=== PATIENT | male | born 1960 | race Caucasian/White ===

== ENCOUNTER 2025-05-13 20:56 | Inpatient (IN) | payer MEDICAID ==
[~2025-05-13] VITALS: Ht 160 cm; Wt 56.8 kg
[2025-05-13 21:00] VITALS: O2SAT 97
[2025-05-14 03:44] LABS: BASOPHILS % 0.5 % (0.0-2.0); EOSINOPHILS % 2.2 % (0.0-5.0); HEMATOCRIT. 46.3 % (42.0-52.0); HEMOGLOBIN. 15.3 g/dL (14.0-18.0); LYMPHOCYTES % 18.5 % (20.0-50.0); MEAN PLATELET VOLUME 6.9 fl (7.4-10.4); MONOCYTES % 10.5 % (2.0-8.0); NEUTROPHILS % 68.3 % (40.0-76.0); PLATELET 254 x1000/uL (130-400); RED BLOOD CELL COUNT 4.91 mill/uL (4.7-6.1); RED CELL DISTRIBUTION WIDTH 13.8 % (11.6-14.6)
[2025-05-14 03:57] LABS: CREATININE 1.0 mg/dL (0.6-1.3); ETHANOL BLOOD < 10 mg/dL (<10); UREA NITROGEN BLOOD 27 mg/dL (9-23)
[2025-05-14 05:15] VITALS: BP 105/66; PULSE 60; RESP 16; TEMP 36.5292
[2025-05-14 08:00] VITALS: BP 105/76; PULSE 64; RESP 16; TEMP 36.2; O2SAT 99
[2025-05-14] MEDS ORDERED: DOCUSATE SODIUM 100MG CAPSULE PO PRN (09:15)
[2025-05-14] MEDS ORDERED: IPRATROPIUM/ALBUTEROL 0.5-3(2.5)MG/3ML NEB HHN PRN (09:15)
[2025-05-14] MEDS ORDERED: ONDANSETRON HCL 4MG/2ML INJ IV PRN (09:15)
[2025-05-14] MEDS ORDERED: ACETAMINOPHEN 325MG TABLET PO PRN (09:15)
[2025-05-14] MEDS ORDERED: CLONIDINE 0.1MG TABLET PO PRN (09:15)
[2025-05-14 10:41] LABS: ASPARTATE AMINOTRANSFERASE 86 IU/L (<34); BILIRUBIN DIRECT 0.2 mg/dL (<=3.0); BILIRUBIN TOTAL 1.0 mg/dL (0.1-1.0); PROTEIN TOTAL 6.6 g/dL (6.0-8.3)
[2025-05-14] MEDS: PANTOPRAZOLE SODIUM 40 MG/VIAL IV SCH (11:24)
[2025-05-14] MEDS: MULTIVITAMINS,THER W-MINERALS TABLET PO SCH (11:24)
[2025-05-14] MEDS: THIAMINE HCL 100MG TABLET PO SCH (11:25)
[2025-05-14] MEDS: FOLIC ACID 1MG TABLET PO SCH (11:25)
[2025-05-14] MEDS: DEXT 5%/0.45% NACL 1000ML 1,000 ML IV SCH (11:28)
[2025-05-14 11:41] LABS: INR 1.0
[2025-05-14 12:00] VITALS: TEMP 36.3; O2SAT 98
[2025-05-14] MEDS: CHLORDIAZEPOXIDE 25MG CAPSULE PO SCH (13:38)
[2025-05-14] MEDS: LORAZEPAM 1MG TABLET PO SCH (16:08)
[2025-05-14 16:49] LABS: CLARITY URINE CLEAR (CLEAR); COLOR URINE YELLOW (YELLOW); GLUCOSE URINE 2+ (NEGATIVE); KETONES URINE TRACE (NEGATIVE); LEUKOCYTE ESTERASE URINE NEGATIVE (NEGATIVE); NITRITE URINE NEGATIVE (NEGATIVE); OCCULT BLOOD URINE NEGATIVE (NEGATIVE); PH URINE 5.5 (4.5-8.0); PROTEIN URINE NEGATIVE (NEGATIVE); SPECIFIC GRAVITY URINE 1.029 (1.005-1.030); UROBILINOGEN URINE 1.0 E.U./dL (0.2-1.0)
[2025-05-14 17:27] LABS: *AMPHETAMINES SCREEN URINE NEGATIVE (NEGATIVE); *BARBITURATES SCREEN URINE NEGATIVE (NEGATIVE); *BENZODIAZEPINES SCREEN URINE NEGATIVE (NEGATIVE); *COCAINE SCREEN URINE NEGATIVE (NEGATIVE); CANNABINOID URINE SCREEN NEGATIVE (NEGATIVE); ECSTASY MDMA SCREEN URINE NEGATIVE (NEGATIVE); METHADONE URINE SCREEN NEGATIVE (NEGATIVE); OPIATES URINE SCREEN NEGATIVE (NEGATIVE); PHENCYCLIDINE URINE SCREEN NEGATIVE (NEGATIVE)
[2025-05-14 18:15] LABS: BACTERIA URINE NONE SEEN; RBC URINE NONE SEEN /hpf (0-2); SQUAMOUS EPITHELIAL CELL URINE RARE /lpf (RARE/1+); WBC URINE NONE SEEN /hpf (0-2)
[2025-05-14 20:00] VITALS: BP 110/74; PULSE 75; RESP 21; TEMP 36.8; O2SAT 100
[2025-05-14] MEDS: LORAZEPAM 1MG TABLET PO PRN (22:07)
[2025-05-15] VITALS: BP 103/71; PULSE 66; RESP 18; TEMP 36.1; O2SAT 100
[2025-05-15 04:00] VITALS: BP 108/75; PULSE 52; RESP 18; TEMP 36.2; O2SAT 99
[2025-05-15 08:00] VITALS: BP 109/69; PULSE 52; RESP 18; TEMP 36.5; O2SAT 96
[2025-05-15] MEDS: ACETAMINOPHEN 325MG TABLET PO PRN (09:42)
[2025-05-15 13:21] LABS: BASOPHILS % 0.4 % (0.0-2.0); EOSINOPHILS % 2.2 % (0.0-5.0); HEMATOCRIT. 44.7 % (42.0-52.0); HEMOGLOBIN. 14.9 g/dL (14.0-18.0); LYMPHOCYTES % 26.1 % (20.0-50.0); MEAN PLATELET VOLUME 7.2 fl (7.4-10.4); MONOCYTES % 7.5 % (2.0-8.0); NEUTROPHILS % 63.8 % (40.0-76.0); PLATELET 277 x1000/uL (130-400); RED BLOOD CELL COUNT 4.69 mill/uL (4.7-6.1); RED CELL DISTRIBUTION WIDTH 13.5 % (11.6-14.6)
[2025-05-15 13:28] LABS: INR 1.0
[2025-05-15 13:44] LABS: UREA NITROGEN BLOOD 9 mg/dL (9-23)
[2025-05-15 13:45] LABS: CREATININE 0.7 mg/dL (0.6-1.3)
[2025-05-15 13:46] LABS: ASPARTATE AMINOTRANSFERASE 69 IU/L (<34); BILIRUBIN DIRECT 0.2 mg/dL (<=3.0); PHOSPHORUS 2.7 mg/dL (2.5-4.9)
[2025-05-15 13:47] LABS: BILIRUBIN TOTAL 0.9 mg/dL (0.1-1.0); PROTEIN TOTAL 6.4 g/dL (6.0-8.3)
[2025-05-15 16:00] VITALS: BP 111/90; PULSE 83; RESP 17; TEMP 36.4; O2SAT 97
[2025-05-15 20:00] VITALS: BP 132/74; PULSE 82; RESP 19; TEMP 36.6; O2SAT 99
[2025-05-16] VITALS: BP 122/91; PULSE 90; RESP 19; TEMP 36.7; O2SAT 99
[2025-05-16] MEDS: HALOPERIDOL LACTATE 5MG/ML VIAL IM PRN (00:46)
[2025-05-16 04:00] VITALS: BP 160/89; PULSE 82; RESP 18; TEMP 36.3; O2SAT 98
[2025-05-16 09:16] VITALS: BP 124/67; PULSE 60; RESP 16; TEMP 36.3; O2SAT 97
[2025-05-16 12:00] VITALS: BP 137/78; PULSE 70; RESP 16; RESP 18; TEMP 36.6; O2SAT 96
[2025-05-16] MEDS: THIAMINE HCL 100 MG in SODIUM CHLORIDE 0.9% 49 ML IV SCH (13:55)
[2025-05-16 16:13] VITALS: BP 127/65; PULSE 66; RESP 17; TEMP 36.4; O2SAT 96
[2025-05-16 20:00] VITALS: BP 130/88; PULSE 92; RESP 18; TEMP 36.3; O2SAT 98
[2025-05-16 21:56] LABS: TRIGLYCERIDE 197.0 mg/dL (0-150)
[2025-05-16 21:57] LABS: LDL CHOLESTEROL 109.0 mg/dL (5-100)
[2025-05-16 22:02] LABS: FOLIC ACID (FOLATE) SERUM > 20.00 ng/mL (>5.38)
[2025-05-16 22:12] LABS: VITAMIN B12 SERUM > 2000 pg/mL (211-911)
[2025-05-17] VITALS (7 sets, daily range): BP systolic 112–134; BP diastolic 70–106; PULSE 59–97; RESP 16–18; TEMP 36.1–36.7; O2SAT 96–99
[2025-05-17 09:07] LABS: BASOPHILS % 0.5 % (0.0-2.0); EOSINOPHILS % 3.6 % (0.0-5.0); HEMATOCRIT. 45.0 % (42.0-52.0); HEMOGLOBIN. 15.2 g/dL (14.0-18.0); LYMPHOCYTES % 21.0 % (20.0-50.0); MEAN PLATELET VOLUME 7.2 fl (7.4-10.4); MONOCYTES % 5.5 % (2.0-8.0); NEUTROPHILS % 69.4 % (40.0-76.0); PLATELET 292 x1000/uL (130-400); RED BLOOD CELL COUNT 4.80 mill/uL (4.7-6.1); RED CELL DISTRIBUTION WIDTH 13.3 % (11.6-14.6)
[2025-05-17 09:24] LABS: CREATININE 0.8 mg/dL (0.6-1.3); UREA NITROGEN BLOOD 7 mg/dL (9-23)
[2025-05-17] MEDS: HALOPERIDOL LACTATE 5MG/ML VIAL IM PRN (13:17)
[2025-05-17] MEDS: LORAZEPAM 1MG TABLET PO PRN (22:32)
[2025-05-18 07:30] LABS: CREATININE 0.8 mg/dL (0.6-1.3); UREA NITROGEN BLOOD 7 mg/dL (9-23)
[2025-05-18 07:33] LABS: PHOSPHORUS 2.6 mg/dL (2.5-4.9)
[2025-05-18 08:00] VITALS: BP 115/73; PULSE 72; RESP 17; TEMP 36.3; O2SAT 98
[2025-05-18] MEDS: RISPERIDONE 0.5MG TABLET PO SCH (08:58)
[2025-05-18 12:00] VITALS: BP 131/80; PULSE 74; RESP 17; TEMP 36.2; O2SAT 98
[2025-05-18] MEDS ORDERED: MEMA10TA20 MT (14:49)
[2025-05-18] MEDS ORDERED: THIA50TA13 (14:56)
[2025-05-18] MEDS ORDERED: CYAN-33 MT (14:59)
[2025-05-18] MEDS ORDERED: MAGN400C MT (15:01)
[2025-05-18] MEDS ORDERED: CALC-989 MT (15:05)
[2025-05-18] MEDS ORDERED: CHOL500051 (15:08)
[2025-05-18 16:00] VITALS: BP 129/79; PULSE 87; RESP 18; TEMP 36.3; O2SAT 98
[2025-05-18] MEDS: CHOLECALCIFEROL (D3) 1000 UNIT TABLET PO SCH (16:11)
[2025-05-18] MEDS: MEMANTINE HCL 10MG TABLET PO SCH (16:11)
[2025-05-18 20:00] VITALS: BP 150/73; PULSE 94; RESP 19; TEMP 36.6; O2SAT 98
[2025-05-18] MEDS: DIPHENHYDRAMINE 50MG/ML VIAL IV PRN (22:10)
[2025-05-19] VITALS: BP 125/81; PULSE 91; RESP 17; TEMP 36.6; O2SAT 100
[2025-05-19 04:00] VITALS: BP 126/85; PULSE 79; RESP 18; TEMP 36.4; O2SAT 100
[2025-05-19 07:36] LABS: BASOPHILS % 0.4 % (0.0-2.0); EOSINOPHILS % 3.5 % (0.0-5.0); HEMATOCRIT. 44.4 % (42.0-52.0); HEMOGLOBIN. 15.1 g/dL (14.0-18.0); LYMPHOCYTES % 20.5 % (20.0-50.0); MEAN PLATELET VOLUME 6.8 fl (7.4-10.4); MONOCYTES % 7.6 % (2.0-8.0); NEUTROPHILS % 68.0 % (40.0-76.0); PLATELET 303 x1000/uL (130-400); RED BLOOD CELL COUNT 4.77 mill/uL (4.7-6.1); RED CELL DISTRIBUTION WIDTH 13.4 % (11.6-14.6)
[2025-05-19 07:50] LABS: CREATININE 0.8 mg/dL (0.6-1.3); UREA NITROGEN BLOOD 6 mg/dL (9-23)
[2025-05-19 08:00] VITALS: BP 123/89; PULSE 78; RESP 17; TEMP 36.2; O2SAT 100
[2025-05-19] MEDS: RISPERIDONE 0.5MG TABLET PO SCH (09:52)
[2025-05-19 12:00] VITALS: BP 127/82; PULSE 75; RESP 17; TEMP 36.3; O2SAT 98
[2025-05-19 16:00] VITALS: BP 150/85; PULSE 102; RESP 20; TEMP 36.3; O2SAT 99
[2025-05-19 20:00] VITALS: BP 128/87; PULSE 105; RESP 18; TEMP 36.7; O2SAT 98
[2025-05-20] VITALS: BP 126/82; PULSE 94; RESP 18; TEMP 36.7; O2SAT 100
[2025-05-20 04:00] VITALS: BP 147/111; PULSE 109; RESP 18; TEMP 36.6; O2SAT 100
[2025-05-20 08:00] VITALS: BP 156/102; PULSE 98; RESP 19; TEMP 37.1; O2SAT 96
[2025-05-20 12:00] VITALS: BP 126/93; PULSE 104; RESP 15; TEMP 37.2; O2SAT 96
[2025-05-20 16:00] VITALS: BP 136/98; PULSE 111; RESP 17; TEMP 36.9; O2SAT 95
[2025-05-20 20:00] VITALS: BP 107/79; PULSE 95; RESP 19; TEMP 36.7; O2SAT 100
[2025-05-21] VITALS (7 sets, daily range): BP systolic 108–128; BP diastolic 70–89; PULSE 69–93; RESP 14–19; TEMP 36.1–37.1; O2SAT 95–100
[2025-05-22] VITALS: BP 109/79; PULSE 86; RESP 18; TEMP 37; O2SAT 100
[2025-05-22 04:00] VITALS: BP 119/81; PULSE 70; RESP 18; TEMP 36.6; O2SAT 99
[2025-05-22 08:00] VITALS: BP 115/77; PULSE 69; RESP 16; TEMP 37.1; O2SAT 96
[2025-05-22 12:00] VITALS: BP 135/75; PULSE 73; RESP 17; TEMP 36.7; O2SAT 97
[2025-05-22] MEDS ORDERED: RISP05 PO (15:39)
[2025-05-22 16:00] VITALS: BP 115/75; PULSE 77; RESP 16; TEMP 36.4; O2SAT 96
[2025-05-22 17:49] VITALS: BP 122/82; PULSE 75; RESP 17; TEMP 97.1
== END 2025-05-22 18:20 | disposition home or self-care (01) | DRG 52 ==
LOC: ER 20:56 → EDBEDREQ 05-14 03:46 → EDBEDREQTM 05-14 03:46 → 6WST 05-14 03:56 → EDBD 05-14 03:56 → EDBEDREQ 05-14 04:02 → EDBEDREQTM 05-14 04:02 → ENRESERV 05-14 04:27
PROVIDERS: ADMIT Internal Medicine; ATTEND Internal Medicine
PROC: GZ56ZZZ Individual Psychotherapy, Supportive (ICD-10-PCS; principal; 2025-05-17)
DX: G92.9 Unspecified toxic encephalopathy (principal); E87.0 Hyperosmolality and hypernatremia; M62.82 Rhabdomyolysis; F10.129 Alcohol abuse with intoxication, unspecified; F10.139 Alcohol abuse with withdrawal, unspecified; Y90.1 Blood alcohol level of 20-39 mg/100 ml; Z79.899 Other long term (current) drug therapy; Z90.49 Acquired absence of other specified parts of digestive tract; Z91.148 Patient's other noncompliance with medication regimen for other reason
CPT/HCPCS: 36415; 70551; 71045; 80048; 80061; 80076; 80305; 80320; 81003; 82140; 82550; 82607; 82746; 83036; 83735; 84100; 84443; 85025; 93005; 99285; J1200; J1630; J2060; J2470; J3411; G0480